=== PATIENT | female | born 1965 | race Two or more races ===

== ENCOUNTER 2025-04-22 21:55 | Emergency (ER) | payer OTHER, SELFPAY ==
--- NOTE | 2025-04-22 23:17 | XR_ITS ---
Examination: CT lumbar spine, without contrast. 2-D sagittal reconstructions. 2-D coronal reconstructions. 3-D reconstructions. Date and time of exam:April 23, 2025, 0023 hours INDICATIONS: Lower back pain radiating down the legs today CTDI: vol (mGy):80 DLP: (mGycm):2184 Technique: Multiple 1.25 mm axial sections of the lumbar spine have been obtained. 2-D sagittal and coronal reconstructions have been obtained. 3-D reconstructions have been obtained. Low dose protocols were performed. One or more of the following dose reduction techniques were used; automated exposure control, adjustment of the mA and/or KV according to patient size, use of iterative reconstruction technique. Findings: Adequate alignment lumbar vertebral bodies No lumbar fracture Mild disc narrowing L4-L5 Lumbar pedicles, laminae, transverse and posterior spinous processes are intact L5-S1 2 mm central lumbar disc bulge with moderate bilateral neural foraminal stenosis L4-L5 no disc protrusion L3-L4 no disc protrusion L2-L3 no disc protrusion L1-L2 no disc protrusion IMPRESSION: Mild degenerative disc disease L4-L5 L5-S1 2 mm of lumbar disc bulge with moderate bilateral neural foraminal stenosis Consider elective MRI lumbar spine without contrast follow-up for best assessment of acquired soft tissue spinal stenosis
--- NOTE | 2025-04-22 23:24 | PD.EDBACK ---
ED Back Injury Pain RME/HPI General Chief Complaint: Extremity Problem,Nontraumatic Stated Complaint: LEFT LEG PAIN Time Seen by Provider: 04/22/25 23:15 Arrival date/time: 04/22/25 21:55 RME / HPI RME / HPI Narrative: This section includes all my notes and documentations, including HPI, PE, and ED course. Emory Santana MD HPI: 60 y/o female presents to ED c/o left-sided lower back pain that radiates down to the left leg x several days. No injury. No paralysis. No loss of control of bladder or bowels. No anal numbness. No other complaints. ROS: All negative except as documented in HPI. Physical Exam: General: Alert and oriented. Appears uncomfortable. Eyes: Conjunctivae and lids clear. ENT: No nasal congestion. Neck: Supple. Lungs: No respiratory distress. Abdomen: Soft and nontender. Normal bowel sounds. No distension. No rebound or guarding. Back: No CVA tenderness. Equivocal lumbar spinal tenderness with limited range of motion due to pain. Right straight leg raise equivocal. Skin: Warm and dry. Neuro: Alert and oriented X 3. No peripheral motor deficits. I reviewed all diagnostic test results. My review of the Lumbar CT report is spinal stenoses. At this point, diagnoses include lumbar spinal stenosis. Treatment here included Tylenol with Codeine, Zofran. Some improvement noted. Recommend outpatient management. Based on my best medical judgment, made decision no further evaluation or treatment indicated at this time. Patient understands and agrees to the discharge instructions customized and printed, see below. Discharge Instructions from Dr. Santana: --After evaluation, we are dealing with Sciatica (same as Lumbar Radiculopathy or Spinal Stenosis) where pinched nerve is causing your symptoms.? --This condition is difficult because normal pain medications don?t work very well on nerve pain. --Despite the pain, try to resume your normal chores and activities.? Because inactivity is terrible for this condition.? And activity won?t make your condition worse.? Use a cane of stick in your right hand to help stand and walk.? --Use Ibuprofen and Cyclobenzaprine and Tylenol with codeine and lidocaine patches as needed.? Don't expect the pain to go away completely, hoping to take the edge off.?? --When resting and sleeping, try right sided position (with your knees to your chest and bending forward).? This can take some pressure off the nerve and help your pain. --Apply ice or heat if helpful. --See a private doctor (outside the ER) on 04/25/2025 for further care. Ask to help you get more care not available here in the ER.? Such as MRI imaging, physical therapy, and referrals to see specialists.? Some choose to have surgery for this condition. But you need to have MRI imaging to confirm the diagnosis and assess the severity to get the best treatments. --Seek immediate medical care with paralysis in your foot, losing control of your bladder or bowels, saddle numbness (anal numbness), or with any concerns.?? Emory Santana MD Related Data Home Medications ?Medication ?Instructions ?Recorded ?Confirmed Cyanocobalamin (B12 Health Booster) 1 PO DAILY ##0 06/03/10 Olmesartn/Hydrochlorothiazide 1 PO QDAY ##0 06/03/10 (Benicar Hct 20-12.5 Mg Tab) Propoxyphene/Acetaminophen 1 PO Q4-6HRPRN ##0 06/03/10 (Propoxy-N/Apap 100-650 Tab) naproxen 250 mg tablet (Naprosyn) 1 PO BIDWM ##0 06/03/10 omeprazole 20 mg capsule,delayed 1 PO DAILY ##0 06/03/10 release (Prilosec) pyridoxine (vitamin B6) 100 mg 1 PO DAILY ##0 06/03/10 tablet (Vitamin B-6) tizanidine 4 mg tablet (Zanaflex) 1 PO QHS ##0 06/03/10 Previous Rx's ?Medication ?Instructions ?Recorded Hydrocodone/Acetaminophen * (NORCO 1 tab PO Q6H PRN pain #14 tabs 04/05/17 5/325 *) ibuprofen 800 mg tablet 800 mg PO TID PRN pain #30 tabs 07/20/19 ondansetron HCl 4 mg tablet 4 mg PO QID PRN nausea and 07/20/19 (Zofran) vomiting #30 tabs acetaminophen 300 mg-codeine 30 mg 2 tab PO Q8H PRN pain #20 tabs 04/23/25 tablet cyclobenzaprine 10 mg tablet 10 mg PO Q8H PRN muscle spasm #30 04/23/25 tabs ibuprofen 800 mg tablet 800 mg PO Q8H PRN pain #30 tabs 04/23/25 lidocaine 5 % topical patch 2 patch topical QDAY PRN pain #30 04/23/25 (Lidoderm) ea Allergies Allergy/AdvReac Type Severity Reaction Status Date / Time No Known Allergies Allergy Verified 04/22/25 21:56 Review of Systems Review of Systems Systems Reviewed: All systems reviewed, normal except as documented Past Medical History Social History SMOKING STATUS: Never smoker ED Exam Narrative Physical exam: Refer to HPI above Course Quality Measures none Orders Category Date Time Status CT lumbar spine wo con Stat Exams 04/22/25 23:17 Taken ACETAMINOPHEN w/COD 300-30 [Tylenol w/Cod #3] Med 04/22/25 23:16 Discontinued 2 tab PO X1 ONE Ondansetron Odt [Zofran Odt] Med 04/22/25 23:16 Discontinued 4 mg PO X1 ONE Vital Signs Vital signs: Vital Signs Temperature 98.1 F 04/23/25 00:01 Pulse Rate 73 04/23/25 00:01 Respiratory Rate 20 04/23/25 00:01 Blood Pressure 124/78 04/23/25 00:01 Pulse Oximetry (%) 97 04/23/25 00:01 Oxygen Delivery Method Room Air 04/23/25 00:01 Back Pain / Injury MDM Narrative MDM Narrative:: Scribe Attestation: Hannah Nguyen am scribing for and in the presence of Dr. Santana. Provider Notation: Although this document has been carefully reviewed, there may still be some phonetic and other typographical errors.? These errors are purely grammatical due to imperfections in the software program and should not be construed in any way to? compromise the substance of the patient's medical care during this visit. 60 y/o female presents to ED c/o left-sided lower back pain that radiates down to the left leg x several days. No other complaints. Patient data External records reviewed:: [facility] previous records (No recent ED records available for review.) Clinical information provided by:: patient Social determinants that could affect healthcare access:: none Patient has the following chronic illnesses:: None reported How is presenting disease/condition affected by chronic disease/condition?: no chronic disease Evaluation data The following diagnostics were reviewed and interpreted by me:: radiology exam(s) Lab and/or radiology exams considered but not ordered:: None Interpretation Summary: I reviewed all diagnostic test results. My review of the Lumbar CT report is spinal stenoses. Medications / Prescriptions Medications or Prescriptions considered but not ordered:: None Medication administrations:: Medication Administration History Discontinued Medications Acetaminophen/Codeine Phosphate (Acetaminophen W/Cod 300-30 Tablet) 2 tab PO X1 ONE Stop: 04/22/25 23:17 Last Admin: 04/23/25 01:13 Dose: 2 tab Documented By: CVL Ondansetron HCl (Ondansetron Odt 4 Mg Tabrap) 4 mg PO X1 ONE; Protocol Stop: 04/22/25 23:17 Last Admin: 04/23/25 01:12 Dose: 4 mg Documented By: CVL Tylenol with Codeine, Zofran Consultations Consultation(s) initiated? (list below): No Diagnosis Differential diagnosis back pain/injury: lumbar radiculopathy, sciatica, strain of lumbar region, pyelonephritis, thoracic back pain and discitis Most likely diagnosis given after review of the tests above:: Lumbar spinal stenosis Admission Indicated Admission indicated?: not indicated Explain why admission is indicated or not indicated:: With significant improvement, there was no indication for admission.? Admission Request Was there a request for admission?: No Disposition Plan Disposition Plan: Discharge Discharge Attestation Discharge Attestation: The patient and all family members were given an opportunity to ask questions and understood the discharge instructions. Discharge instructions specifically effects, indications for sooner follow up or return to the emergency department, and the expected course of current diagnosis. Patient condition: Stable Discharge Plan Plan Patient Disposition: HOME (Self Care) Prescriptions/Referrals Prescriptions/Med Rec: New cyclobenzaprine 10 mg tablet 10 mg PO Q8H PRN (Reason: muscle spasm) Qty: 30 0RF ibuprofen 800 mg tablet 800 mg PO Q8H PRN (Reason: pain) Qty: 30 0RF acetaminophen-codeine 300-30 mg tablet 2 tab PO Q8H MDD 6 PRN (Reason: pain) Qty: 20 0RF lidocaine [Lidoderm] 5 % adhesive patch,medicated 2 patch topical QDAY PRN (Reason: pain) Qty: 30 0RF Rx Instructions: leave on most painful area for up to 12 hrs No Action tizanidine [Zanaflex] 4 MG tablet 1 PO QHS Qty: 0 naproxen [Naprosyn] 250 MG tablet 1 PO BIDWM Qty: 0 omeprazole [Prilosec] 20 MG capsule,delayed release(DR/EC) 1 PO DAILY Qty: 0 pyridoxine (vitamin B6) [Vitamin B-6] 100 MG tablet 1 PO DAILY Qty: 0 Cyanocobalamin (B12 Health Booster) 1,000 MCG/15 ML ORAL.SUSP 1 PO DAILY Qty: 0 Olmesartn/Hydrochlorothiazide (Benicar Hct 20-12.5 Mg Tab) 1 TAB tablet 1 PO QDAY Qty: 0 Propoxyphene/Acetaminophen (Propoxy-N/Apap 100-650 Tab) 1 EACH tablet 1 PO Q4-6HRPRN Qty: 0 Hydrocodone/Acetaminophen * (NORCO 5/325 *) 1 TAB tablet 1 tab PO Q6H PRN (Reason: pain) Qty: 14 0RF ibuprofen 800 mg tablet 800 mg PO TID PRN (Reason: pain) Qty: 30 0RF ondansetron HCl [Zofran] 4 mg tablet 4 mg PO QID PRN (Reason: nausea and vomiting) Qty: 30 0RF Referrals: No Primary/Family,Physician [Primary Care Provider] - In 1 week Problem List Clinical Impression: Lumbar spinal stenosis Patient/Caregiver Discharge Instructions Discharge Activity: activity as tolerated Education Materials: ED Sciatica Additional Instructions: Discharge Instructions from Dr. Santana: --After evaluation, we are dealing with Sciatica (same as Lumbar Radiculopathy or Spinal Stenosis) where pinched nerve is causing your symptoms.? --This condition is difficult because normal pain medications don?t work very well on nerve pain. --Despite the pain, try to resume your normal chores and activities.? Because inactivity is terrible for this condition.? And activity won?t make your condition worse.? Use a cane of stick in your right hand to help stand and walk.? --Use Ibuprofen and Cyclobenzaprine and Tylenol with codeine and lidocaine patches as needed.? Don't expect the pain to go away completely, hoping to take the edge off.?? --When resting and sleeping, try right sided position (with your knees to your chest and bending forward).? This can take some pressure off the nerve and help your pain. --Apply ice or heat if helpful. --See a private doctor (outside the ER) on 04/25/2025 for further care. Ask to help you get more care not available here in the ER.? Such as MRI imaging, physical therapy, and referrals to see specialists.? Some choose to have surgery for this condition. But you need to have MRI imaging to confirm the diagnosis and assess the severity to get the best treatments. --Seek immediate medical care with paralysis in your foot, losing control of your bladder or bowels, saddle numbness (anal numbness), or with any concerns.?? Print Language: [place]an Stand Alone Forms: [employer] Award Info., Patient Portal Info Letter
[2025-04-23 00:01] VITALS: BP 124/78; PULSE 73; RESP 20; TEMP 36.7; O2SAT 97
[2025-04-23] MEDS: ONDANSETRON ODT 4 MG TABRAP PO (01:12)
[2025-04-23] MEDS: ACETAMINOPHEN w/COD 300-30 TABLET 2 TAB PO (01:13)
--- NOTE | 2025-04-23 01:29 | PRELIM_ITS ---
CT scan of the lumbar spine without intravenous contrast (axial sections with sagittal and coronal reformats) April 23, 2025 0023 hours Clinical History: Lower bal pain radiating into left leg Comparison: No prior study is available for comparison. Findings: There is no fracture or subluxation. There are disc osteophyte complexes at multiple levels, most marked at L3-4 through L5-S1 levels, with associated uncinate hypertrophy and facet arthropathy, causing moderate spinal canal stenosis and bilateral neural foraminal stenosis.The vertebral body height and intervertebral disc spaces are normal. The soft tissues are unremarkable. Impression: No evidence of fracture, subluxation or significant soft tissue injury. Multilevel degenerative changes as described. Report Electronically Signed By: Breanna Santana 04/23/2025 1:28:23 AM [EST]
[2025-04-23 01:58] VITALS: RESP 18
== END 2025-04-23 02:00 | disposition home or self-care (01) ==
PROVIDERS: Emergency Provider Emergency Medicine
DX: M48.061 Spinal stenosis, lumbar region without neurogenic claudication (principal)
CPT/HCPCS: 72131; 99284; Q0162; A9270